=== PATIENT | female | born 1970 | race Hispanic/Latino ===

== ENCOUNTER 2018-02-26 13:20 | Emergency (ER) | payer BC ==
[2018-02-26] MEDS ORDERED: ONDANSETRON 4 MG/2 ML VIAL ONE (15:46)
[2018-02-26 15:53] LABS: Absolute Lymphocytes (CBC) 1.5 K/uL (0.7-4.9); Absolute Monocytes 0.6 K/uL (0.1-1.3); Absolute Neutrophil 5.4 K/uL (1.8-8.0); Basophils % 0.6 % (0-1.3); Eosinophils % 0.9 % (0-4.4); Hematocrit 38.4 % (36.0-45.0); Lymphocytes % 19.2 % (15.3-44.8); MCH 31.1 pg (27.0-35.0); MCV 91.4 fL (80-100); Monocytes % 7.6 % (3.3-12.3)
[2018-02-26 16:01] LABS: Bicarbonate 28 mEq/L (21-31); Glucose Level 99 mg/dL (65-120); Lipase 75 U/L (22-51); Potassium 3.7 mEq/L (3.6-5.0); Sodium Level 137 mEq/L (135-145)
[2018-02-26 16:10] LABS: AST/SGOT 160 IU/L (10-42); Albumin 4.6 g/dL (3.2-5.5); Alkaline Phosphatase 150 IU/L (42-121); Amylase Level 141 U/L (28-100); BUN Blood Urea Nitrogen 16 mg/dL (6-20); Bilirubin Direct 0.1 mg/dL (0-0.2); Bilirubin Total 0.8 mg/dL (0.3-1.2); Protein, Total 7.4 g/dL (6.0-8.3)
[2018-02-26 16:19] LABS: ALT/SGPT 303 IU/L (10-60)
[2018-02-26] MEDS ORDERED: NA CHLORIDE 0.9% 1,000 ML ONE (16:43)
[2018-02-26] MEDS ORDERED: MORPHINE 4 MG/ML SYR ONE (16:43)
--- NOTE | 2018-02-26 17:59 | RAD REPORT ---
EXAM DESCRIPTION: CT - Abdomen Pelvis W Contrast - 02/26/2018 5:43 pm CLINICAL HISTORY: Epigastric pain, abdominal pain, chest pain COMPARISON: None. TECHNIQUE: Biphasic, helical CT imaging of the abdomen and pelvis was performed following 100 ml non -ionic IV contrast. Oral contrast was given. All CT scans are performed using dose optimization technique as appropriate and may include automated exposure control or mA/KV adjustment according to patient size. FINDINGS: No suspicious findings in the lung bases. The liver, spleen, and pancreas show no suspicious findings. Gallbladder is absent. Dilatation of the biliary tree is not outside of normal range for a post cholecystectomy patient. Duct stones can be o ccult. Correlation is needed with any biliary obstructive clinical or laboratory findings. Prompt, symmetric renal function is seen. Both kidneys show a few small focal areas of diminished enh ancement of the cortical tissue. No perinephric stranding. There is no hydronephrosis or solid mass i dentifiable. No urinary bladder wall thickening or enhancement. Uterus is absent. Ovaries are unremar kable. No adnexal suspicious finding. No gastric dilatation or gastric wall thickening. Duodenum is unremarkable. Remainder of the small frank wel unremarkable. No appendicitis findings. Prominent stool volume fills the colon from cecum to sple pj flexure. No colon wall thickening, edema or mass. No free air, free fluid or inflammatory stranding. No hernia, mass or bulky lymphadenopathy. No ad renal abnormality. No suspicious bony findings. IMPRESSION: No obstruction, free air or surgically emergent finding. Bilateral renal parenchymal enhancement is somewhat heterogeneous. This is favored to be prior infect ious or ischemic insult. Minimal pyelonephritis cannot be excluded and would need correlation with UA findings. Urinary bladder is unremarkable. Status post cholecystectomy. Biliary tree is mildly dilated but not outside of normal range for post cholecystectomy patient.
[2018-02-26 18:20] LABS: Urine Blood TRACE (NEG); Urine Glucose NEGATIVE (NEG); Urine Protein NEGATIVE (NEG)
--- NOTE | 2018-02-26 18:41 | RAD REPORT ---
EXAM DESCRIPTION: US - Abdomen Exam Limited - 02/26/2018 5:41 pm CLINICAL HISTORY: Abnormal liver function, nausea, vomiting COMPARISON: None. FINDINGS: Liver size is normal with a 14 centimeter maximum dimension. No capsular nodularity. No fo francheska liver lesions seen. Liver parenchyma shows a normal echotexture. Gallbladder is absent. Biliary t ree within normal limits. No ascites or lymphadenopathy in the right upper quadrant. IMPRESSION: No liver abnormality identifiable.
[2018-02-26 18:58] LABS: Urine Amorphous Sediment 1+ /HPF (NONE SEEN); Urine Bacteria <20 /HPF (<20); Urine Culture Reflex Order NOT NEEDED; Urine RBC <5 /HPF (NONE SEEN)
--- NOTE | 2018-02-26 19:09 | ER ---
Nurse's Notes [facility] Name: Vanessa Schultz Age: 48 yrs Sex: Female : 1970 Arrival Date: 02/26/2018 Time: 13:22 Bed 17 Private MD: Diagnosis: Low back pain-Tailbone pain;Nausea and vomiting;Constipation Presentation: 02/26 13:35 Presenting complaint: Patient states: Saturday I had epigastric pain/chest pain, nausea, ch and I have been puking since. one week ago my tail bone started hurting, but it is much worse now, my whole R side of my buttock hurts. I cannot poop or urinate. I dont know what's wrong with me. I am taking tylenol with codeine for my pain, and muscle relaxers for my tail bone. Transition of care: patient was not received from another setting of care. Onset of symptoms was February 21, 2018. Initial Sepsis Screen: Does the patient meet any 2 criteria? No. Patient's initial sepsis screen is negative. Does the patient have a suspected source of infection? No. Patient's initial sepsis screen is negative. Care prior to arrival: None. 13:35 Method Of Arrival: Ambulatory 13:35 Acuity: DINA 3 ch Triage Assessment: 13:38 General: Appears in no apparent distress. comfortable, Behavior is calm, cooperative, ch appropriate for age. Pain: Complains of pain in gluteal cleft and right gluteus nubia Pain currently is 9 out of 10 on a pain scale. Respiratory: No deficits noted. GI: Reports nausea, vomiting. 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 - Social history:: Smoking status: Patient/guardian denies using tobacco, Patient/guardian denies using alcohol, street drugs. Screenin:58 Abuse screen: Denies threats or abuse. Denies injuries from another. Nutritional aj1 screening: No deficits noted. Tuberculosis screening: No symptoms or risk factors identified. 20:06 Fall Risk None identified. aj1 Assessment: 14:51 General: Appears in no apparent distress. uncomfortable, Behavior is calm, cooperative, aj1 appropriate for age. Pain: Complains of pain in coccyx, gluteal cleft and right gluteus nubia Pain radiates to right leg Pain currently is 7 out of 10 on a pain scale. Quality of pain is described as burning in the area of the coccyx and then numbness into the buttocks and into the groin and thighs Pain began 3 weeks ago. 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 Full function Speech is normal, Facial symmetry appears normal, Numbness in pelvis, right inner thigh, medial aspect of right thigh, left inner thigh and medial aspect of left thigh. Cardiovascular: Patient's skin is warm and dry. Respiratory: Airway is patent Respiratory effort is even, unlabored, Respiratory pattern is regular, symmetrical. GI: Abdomen is flat, Bowel sounds present X 4 quads. Abd is soft and non tender X 4 quads. Reports constipation, nausea, vomiting. : Reports difficulty urinating, difficulty maintaining a stream of urine when she does urinate. EENT: No signs and/or symptoms were reported regarding the EENT system. Derm: No signs and/or symptoms reported regarding the dermatologic system. Skin is pink, warm \T\ dry. normal. Musculoskeletal: No signs and/or symptoms reported regarding the musculoskeletal system. Circulation, motion, and sensation intact. 16:08 Reassessment: Patient appears in no apparent distress at this time. No changes from aj1 previously documented assessment. Patient and/or family updated on plan of care and expected duration. Pain level reassessed. Patient is alert, oriented x 3, equal unlabored respirations, skin warm/dry/pink. 16:29 Reassessment: Pt finished drinking oral contrast at 1620. CT notified. hb 17:30 Reassessment: Patient and/or family updated on plan of care and expected duration. Pain aj1 level reassessed. General: Appears in no apparent distress. comfortable, Behavior is calm, cooperative. Neuro: Level of Consciousness is awake, alert, obeys commands, Oriented to person, place, time, situation, Speech is normal, Facial symmetry appears normal. Cardiovascular: Patient's skin is warm and dry. Respiratory: Airway is patent Respiratory effort is even, unlabored, Respiratory pattern is. GI: Abdomen is flat, non-distended. : Reports difficulty urinating. EENT: No signs and/or symptoms were reported regarding the EENT system. Derm: No signs and/or symptoms reported regarding the dermatologic system. Skin is pink, warm \T\ dry. normal. Musculoskeletal: No signs and/or symptoms reported regarding the musculoskeletal system. Circulation, motion, and sensation intact. 18:19 Reassessment: Patient states that her nausea is returning. Notified Caden Winston NP. aj1 18:21 Reassessment: Patient appears in no apparent distress at this time. No changes from aj1 previously documented assessment. Patient and/or family updated on plan of care and expected duration. Pain level reassessed. Patient is alert, oriented x 3, equal unlabored respirations, skin warm/dry/pink. 19:30 Reassessment: Patient states that she is still having trouble urinating, and would like aj to know if there is a medication that she can take. Notified Caden Winston NP of patient request. 19:45 Reassessment: Caden Winston NP at bedside to discuss discharge plans with patient. aj1 20:05 Reassessment: Patient states that she cannot take Codeine for pain because she was told aj1 it would make her esophagitis worse. Notified Caden Winston NP. Patient Rx changed to Tramadol. Vital Signs: 13:38 BP 125 / 81; Pulse 86; Resp 15; Temp 98; Pulse Ox 99% on R/A; Weight 68.04 kg; Height 5 ch ft. 1 in. (154.94 cm); Pain 9/10; 14:51 BP 117 / 86; Pulse 74; Resp 18; Pulse Ox 100% on R/A; aj1 16:08 BP 120 / 68; Pulse 72; Resp 18; Pulse Ox 99% ; aj1 17:00 BP 120 / 80; Pulse 68; Resp 18; Pulse Ox 100% ; aj1 18:00 BP 123 / 69; Pulse 76; Resp 18; Pulse Ox 100% ; aj1 18:41 BP 129 / 69; Pulse 75; Resp 18; Pulse Ox 100% on R/A; aj1 19:45 BP 122 / 75; Pulse 72; Resp 18; Pulse Ox 99% ; aj1 13:38 Body Mass Index 28.34 (68.04 kg, 154.94 cm) ED Course: 13:22 Patient arrived in ED. sb2 13:37 Triage completed. 13:38 Arm band placed on right wrist. Patient placed in waiting room, on a stretcher. 14:38 Tiana Carranza, JAVIER is Primary Nurse. aj1 14:47 Vivek Winston NP is PHCP. pm1 14:47 Adilson Bhatti MD is Attending Physician. pm1 14:58 Patient has correct armband on for positive identification. Bed in low position. Call aj1 light in reach. Side rails up X 1. 14:58 No provider procedures requiring assistance completed. aj1 15:50 Inserted saline lock: 20 gauge in right antecubital area, using aseptic technique. aj1 Blood collected. 17:41 US Abdomen Limited In Process Unspecified. EDMS 17:42 Ultrasound completed. Patient tolerated well. Patient moved to CT via wheelchair. aa4 17:43 CT Abd/Pelvis - W/Contrast In Process Unspecified. EDMS 19:09 Jerod Ordonez MD is Referral Physician. pm1 20:07 IV discontinued, intact, bleeding controlled, No redness/swelling at site. Pressure aj1 dressing applied. Administered Medications: 15:49 Drug: Zofran 4 mg Route: IVP; Site: right antecubital; aj1 20:07 Follow up: Response: No adverse reaction aj1 17:00 Drug: NS 0.9% 1000 ml Route: IV; Rate: 1000 ml; Site: right antecubital; aj1 20:08 Follow up: IV Status: Completed infusion; IV Intake: 1000ml aj1 17:01 Drug: morphine 4 mg Route: IVP; Site: right antecubital; aj1 20:08 Follow up: Response: No adverse reaction aj1 Intake: 20:08 IV: 1000ml; Total: 1000ml. aj1 Outcome: 19:08 Discharge ordered by . pm1 20:07 Discharged to home ambulatory, with family. aj1 20:07 Condition: good 20:07 Discharge instructions given to patient, Instructed on discharge instructions, follow up and referral plans. medication usage, Demonstrated understanding of instructions, follow-up care, medications, Prescriptions given X 2. 20:24 Patient left the ED. aj1 Signatures: Dispatcher [employer] EDMS Trupti Lora, RN RN ch Dillon, Tiana, RN RN aj1 Cynthia Lindsay aa4 Vivek Winston, ELECTRICIAN AIRCRAFT ELECTRICIAN AIRCRAFT pm1 Keysha Calixto, RN RN Mallika Buck sb2
--- NOTE | 2018-02-26 19:09 | EDPHYS ---
Physician Documentation [facility] Name: Vanessa Schultz Age: 48 yrs Sex: Female : 1970 Arrival Date: 02/26/2018 Time: 13:22 Bed 17 Private MD: ED Physician Adilson Bhatti HPI: 02/26 17:56 This 48 yrs old Female presents to ER via Ambulatory with complaints of pm1 Vomiting, Pelvic Pain. 17:56 Patient with complaints for low back pain for the past three weeks. Low back pain pm1 present to sacral coccyx area with radiation to right lower leg. Onset of vomiting on Saturday. Patient with epigastric pain at that time that has resolved. Patient without any current abdominal pain. Patient with complaints of constipation and difficulty urinating. No burning or hematuria. 17:56 The patient has been recently seen by a physician: the patient's primary care provider, pm1 For same complaint of tailbone pain and outpatient MRI ordered. Patient with history of ulcers and gastritis per EGD. 17:56 No alcohol consumption. 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 - Social history:: Smoking status: Patient/guardian denies using tobacco, Patient/guardian denies using alcohol, street drugs. ROS: 17:56 Constitutional: Negative for fever, chills, and weight loss, Eyes: Negative for injury, pm1 pain, redness, and discharge, ENT: Negative for injury, pain, and discharge, Neck: Negative for injury, pain, and swelling, Cardiovascular: Negative for chest pain, palpitations, and edema, Respiratory: Negative for shortness of breath, cough, wheezing, and pleuritic chest pain. 17:56 : Negative for injury, bleeding, discharge, and swelling, MS/Extremity: Negative for injury and deformity, Skin: Negative for injury, rash, and discoloration, Neuro: Negative for headache, weakness, numbness, tingling, and seizure. 17:56 Abdomen/GI: Positive for nausea and vomiting, constipation, Negative for abdominal pain, diarrhea. 17:56 Back: Positive for of the sacrum, Pain. Exam: 17:56 Constitutional: This is a well developed, well nourished patient who is awake, alert, pm1 and in no acute distress. Head/Face: Normocephalic, atraumatic. Eyes: Pupils equal round and reactive to light, extra-ocular motions intact. Lids and lashes normal. Conjunctiva and sclera are non-icteric and not injected. Cornea within normal limits. Periorbital areas with no swelling, redness, or edema. ENT: Nares patent. No nasal discharge, no septal abnormalities noted. Tympanic membranes are normal and external auditory canals are clear. Oropharynx with no redness, swelling, or masses, exudates, or evidence of obstruction, uvula midline. Mucous membranes moist. Neck: Trachea midline, no thyromegaly or masses palpated, and no cervical lymphadenopathy. Supple, full range of motion without nuchal rigidity, or vertebral point tenderness. No Meningismus. Chest/axilla: Normal chest wall appearance and motion. Nontender with no deformity. No lesions are appreciated. Cardiovascular: Regular rate and rhythm with a normal S1 and S2. No gallops, murmurs, or rubs. Normal PMI, no JVD. No pulse deficits. Respiratory: Lungs have equal breath sounds bilaterally, clear to auscultation and percussion. No rales, rhonchi or wheezes noted. No increased work of breathing, no retractions or nasal flaring. 17:56 Back: No spinal tenderness. No costovertebral tenderness. Full range of motion. Skin: Warm, dry with normal turgor. Normal color with no rashes, no lesions, and no evidence of cellulitis. MS/ Extremity: Pulses equal, no cyanosis. Neurovascular intact. Full, normal range of motion. 17:56 Abdomen/GI: Inspection: abdomen appears normal, Bowel sounds: normal, Palpation: abdomen is soft and non-tender, in all quadrants. 17:56 Back: vertebral tenderness, is appreciated at sacrum. 17:56 Neuro: Orientation: is normal, Motor: moves all fours. Vital Signs: 13:38 BP 125 / 81; Pulse 86; Resp 15; Temp 98; Pulse Ox 99% on R/A; Weight 68.04 kg; Height 5 ch ft. 1 in. (154.94 cm); Pain 9/10; 14:51 BP 117 / 86; Pulse 74; Resp 18; Pulse Ox 100% on R/A; aj1 16:08 BP 120 / 68; Pulse 72; Resp 18; Pulse Ox 99% ; aj1 17:00 BP 120 / 80; Pulse 68; Resp 18; Pulse Ox 100% ; aj1 18:00 BP 123 / 69; Pulse 76; Resp 18; Pulse Ox 100% ; aj1 18:41 BP 129 / 69; Pulse 75; Resp 18; Pulse Ox 100% on R/A; aj1 19:45 BP 122 / 75; Pulse 72; Resp 18; Pulse Ox 99% ; aj1 13:38 Body Mass Index 28.34 (68.04 kg, 154.94 cm) ch MDM: 14:58 Patient medically screened. pm1 18:50 Physician consultation: Alexander Randhawa MD was called at 18:50, was contacted at 18:50, pm1 regarding patient's condition, and will see patient in office, tomorrow, would like further tests performed, Outpatient MRCP if able to order. 19:06 Data reviewed: vital signs. Data interpreted: Pulse oximetry: on room air is 100 %. pm1 Interpretation: normal. 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 02/26 15:13 Order name: Amylase, Serum; Complete Time: 16:37 pm1 02/26 15:13 Order name: Basic Metabolic Panel; Complete Time: 16:37 pm1 02/26 15:13 Order name: CBC with Diff; Complete Time: 16:37 pm1 02/26 15:13 Order name: Creatinine for Radiology; Complete Time: 16:37 pm1 02/26 15:13 Order name: Hepatic Function; Complete Time: 16:37 pm1 02/26 15:13 Order name: Lipase; Complete Time: 16:37 pm1 02/26 15:13 Order name: Urine Microscopic Only; Complete Time: 19:05 pm1 02/26 15:30 Order name: CT Abd/Pelvis - W/Contrast; Complete Time: 18:25 pm1 02/26 16:40 Order name: US Abdomen Limited; Complete Time: 18:53 pm1 02/26 17:49 Order name: Urine Dipstick--Ancillary (enter results); Complete Time: 18:25 bd 02/26 17:49 Order name: Urine --Ancillary (enter results); Complete Time: 18:25 bd 02/26 15:13 Order name: IV Saline Lock; Complete Time: 15:49 pm1 02/26 15:13 Order name: Labs collected and sent; Complete Time: 15:49 pm1 Administered Medications: 15:49 Drug: Zofran 4 mg Route: IVP; Site: right antecubital; aj1 20:07 Follow up: Response: No adverse reaction aj1 17:00 Drug: NS 0.9% 1000 ml Route: IV; Rate: 1000 ml; Site: right antecubital; aj1 20:08 Follow up: IV Status: Completed infusion; IV Intake: 1000ml aj 17:01 Drug: morphine 4 mg Route: IVP; Site: right antecubital; aj1 20:08 Follow up: Response: No adverse reaction aj Disposition: 22:36 Co-signature as Attending Physician, Adilson Bhatti MD I agree with the assessment and kdr plan of care. Disposition: 02/26/18 19:08 Discharged to Home. Impression: Low back pain - Tailbone pain, Nausea and vomiting, Constipation. - Condition is Stable. - Discharge Instructions: Back Pain, Adult, Constipation, Adult, Nausea and Vomiting. - Prescriptions for promethazine 25 mg Oral Tablet - take 1 tablet by ORAL route every 6 hours As needed; 20 tablet. Tramadol 50 mg Oral Tablet - take 1 tablet by ORAL route every 8 hours as needed; 12 tablet. - Work release form, Medication Reconciliation Form, Thank You Letter, Prescription Opioid Use form. - Follow up: Emergency Department; When: As needed; Reason: Worsening of condition. Follow up: Private Physician; When: 2 - 3 days; Reason: Recheck today's complaints, Continuance of care, Re-evaluation by your physician. Follow up: Jerod Ordonez MD; When: 2 - 3 days; Reason: Recheck today's complaints, Continuance of care, Re-evaluation by your physician. - Problem is new. - Symptoms have improved. Signatures: Dispatcher [employer] EDMS Lyles, LoraJAVIER RN, ch, Angela, RN RN aj1 Adilson Bhatti MD MD [facility] Vivek Winston, LINE CLOSER LINE CLOSER pm1 Corrections: (The following items were deleted from the chart) 19:09 19:08 02/26/2018 19:08 Discharged to Home. Impression: Low back pain - Tailbone pain; pm1 Nausea and vomiting. Condition is Stable. Forms are Medication Reconciliation Form, Thank You Letter, Antibiotic Education, Prescription Opioid Use. Follow up: Emergency Department; When: As needed; Reason: Worsening of condition. Follow up: Private Physician; When: 2 - 3 days; Reason: Recheck today's complaints, Continuance of care, Re-evaluation by your physician. Problem is new. Symptoms have improved. pm1 19:17 17:56 Patient with complaints for low back pain for the past three weeks. Low back pain pm1 present to sacral coccyx area with radiation to right lower leg. onset of vomiting on Saturday. pm1 19:36 19:09 02/26/2018 19:08 Discharged to Home. Impression: Low back pain - Tailbone pain; pm1 Nausea and vomiting. Condition is Stable. Discharge Instructions: Back Pain, Adult, Nausea and Vomiting. Forms are Medication Reconciliation Form, Thank You Letter, Antibiotic Education, Prescription Opioid Use. Follow up: Emergency Department; When: As needed; Reason: Worsening of condition. Follow up: Private Physician; When: 2 - 3 days; Reason: Recheck today's complaints, Continuance of care, Re-evaluation by your physician. Follow up: Jerod Ordonez; When: 2 - 3 days; Reason: Recheck today's complaints, Continuance of care, Re-evaluation by your physician. Problem is new. Symptoms have improved. pm1 20:24 19:36 02/26/2018 19:08 Discharged to Home. Impression: Low back pain - Tailbone pain; aj1 Nausea and vomiting; Constipation. Condition is Stable. Discharge Instructions: Back Pain, Adult, Nausea and Vomiting. Prescriptions for Tylenol-Codeine #3 300-30 mg Oral Tablet - take 2 tablets by ORAL route every 6 hours As needed; 20 tablet, promethazine 25 mg Oral Tablet - take 1 tablet by ORAL route every 6 hours As needed; 20 tablet. and Forms are Medication Reconciliation Form, Thank You Letter, Prescription Opioid Use. Follow up: Emergency Department; When: As needed; Reason: Worsening of condition. Follow up: Private Physician; When: 2 - 3 days; Reason: Recheck today's complaints, Continuance of care, Re-evaluation by your physician. Follow up: Jerod Ordonez; When: 2 - 3 days; Reason: Recheck today's complaints, Continuance of care, Re-evaluation by your physician. Problem is new. Symptoms have improved. pm1
[2018-02-26 20:46] VITALS: TEMP 98
[2018-02-26 20:53] VITALS: BP 122/75; O2SAT 99
== END 2018-02-26 20:24 | disposition home or self-care (01) ==
LOC: ER 13:20
DX: K59.00 Constipation, unspecified (principal); R11.2 Nausea with vomiting, unspecified; Z88.2 Allergy status to sulfonamides
CPT/HCPCS: 36415; 74177; 76705; 80048; 80076; 81003; 81015; 81025; 82150; 83690; 85025; 96361; 96374; 96375; 99284; J2405; J7030; Q9967